=== PATIENT | female | born 1970 | race Two or more races ===

== ENCOUNTER 2019-07-18 12:46 | Inpatient (IN) | payer MEDICAID ==
[~2019-07-18] VITALS: Ht 157.5 cm; Wt 71.5 kg
[2019-07-18] MEDS ORDERED: POLYETHYLENE GLYCOL 17 GM PACKET PO PRN (13:00)
[2019-07-18] MEDS ORDERED: BISACODYL 10 MG SUPP PR PRN (13:00)
[2019-07-18 14:00] VITALS: BP 136/97
[2019-07-18] MEDS ORDERED: PLEASE ENTER ALLERGIES MC SCH (14:30)
[2019-07-18] MEDS ORDERED: PLEASE ENTER HEIGHT AND WEIGHT MC SCH (14:30)
[2019-07-18 15:20] VITALS: BP 136/97
[2019-07-18 15:27] LABS: CHOLESTEROL, TOTAL 120 mg/dL (140-239); TRIGLYCERIDES 136 mg/dL (50-200); VLDL CHOLESTEROL 27 mg/dL (0-25)
[2019-07-18 15:31] LABS: FREE T4 (FREE THYROXINE) 1.22 ng/dL (0.76-1.46); HDL CHOL % 33 % (28-40); HDL CHOLESTEROL (DIRECT) 40 mg/dL (40-60); LDL CHOLESTEROL,CALCULATED 53 mg/dL (54-169); LDL/HDL RATIO 1.3 (0.5-3.0)
[2019-07-18] MEDS ORDERED: ZIPR80CA2 PO (17:42)
[2019-07-18] MEDS ORDERED: LISI10TA2 PO (17:42)
[2019-07-18] MEDS ORDERED: DIVA500T4 PO (17:42)
[2019-07-18] MEDS ORDERED: HYDR50CA2 PO (17:42)
[2019-07-18] MEDS ORDERED: SITA50TA PO (17:42)
[2019-07-18] MEDS ORDERED: METF850T10 PO (17:42)
[2019-07-18] MEDS ORDERED: TRAZ50TA66 PO (17:42)
[2019-07-18] MEDS ORDERED: ESTR30CR VG (17:42)
[2019-07-18 19:15] VITALS: BP 123/85
[2019-07-19 07:04] LABS: BASOPHILS # (AUTO) 0.06 x10^3/uL (0-0.1); BASOPHILS % (AUTO) 1 % (0-1); EOSINOPHILS # (AUTO) 0.05 x10^3/uL (0-0.4); EOSINOPHILS % (AUTO) 0 % (1-7); LYMPHOCYTES % (AUTO) 16 % (22-44); MD NO; MEAN CORPUSCULAR HEMOGLOBIN 31.1 pg (27.0-34.8); MEAN CORPUSCULAR VOLUME 91.5 fL (80-100); MEAN PLATELET VOLUME 7.8 fL (7.4-10.4); MONOCYTES # (AUTO) 1.07 x10^3/uL (0.2-0.8); MONOCYTES % (AUTO) 9 % (2-9); NEUTROPHILS # (AUTO) 9.27 x10^3/uL (1.8-6.8); NEUTROPHILS % (AUTO) 74 % (42-75); PLATELET COUNT 231 x10^3/uL (130-400); RED BLOOD COUNT 5.01 x10^6/uL (3.82-5.3); RED CELL DISTRIBUTION WIDTH 12.9 % (9.6-15.2)
[2019-07-19 07:11] VITALS: BP 117/85
[2019-07-19 07:16] LABS: ANION GAP 7 mmol/L (5-15); CALCIUM 8.6 mg/dL (8.5-10.1); CHLORIDE 106 mmol/L (98-107); CREATININE 0.75 mg/dL (0.55-1.02)
[2019-07-19] MEDS: ACETAMINOPHEN 325 MG TABLET PO PRN (10:58)
[2019-07-19 13:49] LABS: MICROSCOPIC INDICATED
[2019-07-19 13:57] LABS: AMPHETAMINE SCREEN, URINE Positive (Negative); BARBITURATE SCREEN, URINE Negative (Negative); BENZODIAZEPINE SCREEN, URINE Negative (Negative); CANNABINOID SCREEN, URINE Negative (Negative); COCAINE SCREEN, URINE Negative (Negative); METHADONE SCREEN, URINE Negative (Negative); OPIATE SCREEN, URINE Negative (Negative)
[2019-07-19 14:19] LABS: CULTURE INDICATED? NO
[2019-07-19] MEDS: ZIPRASIDONE 40MG CAPSULE PO SCH ×2 (15:06→20:52)
[2019-07-19] MEDS: HYDROXYZINE PAMOATE 50MG CAP PO SCH ×2 (15:07→20:50)
[2019-07-19] MEDS: INSULIN LISPRO 100 UNITS/ML, PEN SQ-INSULIN SCH ×2 (18:00→20:56)
[2019-07-19 19:00] VITALS: BP 99/69
[2019-07-19] MEDS: metFORMIN 850 MG TABLET PO SCH (20:50)
[2019-07-20 07:42] VITALS: BP 114/80
[2019-07-20] MEDS: INSULIN LISPRO 100 UNITS/ML, PEN SQ-INSULIN SCH ×4 (08:15→20:25)
[2019-07-20] MEDS ORDERED: LINAGLIPTIN 5 MG TAB PO SCH (09:00)
[2019-07-20] MEDS: LINAGLIPTIN 5 MG TAB PO SCH (09:16)
[2019-07-20] MEDS: ZIPRASIDONE 40MG CAPSULE PO SCH ×2 (09:17→20:26)
[2019-07-20] MEDS: HYDROXYZINE PAMOATE 50MG CAP PO SCH ×2 (09:17→20:26)
[2019-07-20] MEDS: LISINOPRIL 10 MG TABLET PO SCH (09:17)
[2019-07-20] MEDS: metFORMIN 850 MG TABLET PO SCH ×3 (09:17→20:26)
[2019-07-20 19:25] VITALS: BP 105/63
[2019-07-20] MEDS: ONDANSETRON ODT 4 MG PO PRN (22:50)
[2019-07-21] MEDS ORDERED: TRAZODONE 100MG TABLET PO ONE (01:30)
[2019-07-21 07:24] VITALS: BP 127/89
[2019-07-21] MEDS: INSULIN LISPRO 100 UNITS/ML, PEN SQ-INSULIN SCH ×4 (08:03→19:40)
[2019-07-21] MEDS: LISINOPRIL 10 MG TABLET PO SCH (08:15)
[2019-07-21] MEDS: metFORMIN 850 MG TABLET PO SCH ×3 (08:15→19:39)
[2019-07-21] MEDS: HYDROXYZINE PAMOATE 50MG CAP PO SCH ×2 (08:15→19:39)
[2019-07-21] MEDS: ZIPRASIDONE 40MG CAPSULE PO SCH ×2 (08:15→19:39)
[2019-07-21] MEDS: LINAGLIPTIN 5 MG TAB PO SCH (08:15)
[2019-07-21 19:24] VITALS: BP 124/80
[2019-07-21] MEDS: ACETAMINOPHEN 325 MG TABLET PO PRN (19:39)
[2019-07-22 07:27] VITALS: BP 124/77
[2019-07-22] MEDS: INSULIN LISPRO 100 UNITS/ML, PEN SQ-INSULIN SCH ×4 (08:11→20:29)
[2019-07-22] MEDS: ZIPRASIDONE 40MG CAPSULE PO SCH ×2 (08:45→20:29)
[2019-07-22] MEDS: LINAGLIPTIN 5 MG TAB PO SCH (08:45)
[2019-07-22] MEDS: metFORMIN 850 MG TABLET PO SCH ×3 (08:46→20:30)
[2019-07-22] MEDS: HYDROXYZINE PAMOATE 50MG CAP PO SCH ×2 (08:46→20:30)
[2019-07-22] MEDS: LISINOPRIL 10 MG TABLET PO SCH (08:46)
[2019-07-22 19:00] VITALS: BP 112/79
[2019-07-22] MEDS: ONDANSETRON ODT 4 MG PO PRN (19:37)
[2019-07-22] MEDS: DOCUSATE 100 MG CAPSULE PO PRN (20:30)
[2019-07-22] MEDS: ACETAMINOPHEN 325 MG TABLET PO PRN (20:30)
[2019-07-23] MEDS: INSULIN LISPRO 100 UNITS/ML, PEN SQ-INSULIN SCH ×4 (07:00→20:02)
[2019-07-23 07:37] VITALS: BP 129/83
[2019-07-23] MEDS: ZIPRASIDONE 40MG CAPSULE PO SCH ×2 (09:03→20:02)
[2019-07-23] MEDS: LINAGLIPTIN 5 MG TAB PO SCH (09:04)
[2019-07-23] MEDS: metFORMIN 850 MG TABLET PO SCH ×3 (09:04→20:02)
[2019-07-23] MEDS: HYDROXYZINE PAMOATE 50MG CAP PO SCH ×2 (09:04→20:02)
[2019-07-23] MEDS: LISINOPRIL 10 MG TABLET PO SCH (09:04)
[2019-07-23] MEDS: DOCUSATE 100 MG CAPSULE PO PRN (09:05)
[2019-07-23 19:58] VITALS: BP 120/80
[2019-07-23] MEDS: ONDANSETRON ODT 4 MG PO PRN (21:45)
[2019-07-24 07:39] VITALS: BP 99/66
[2019-07-24] MEDS: INSULIN LISPRO 100 UNITS/ML, PEN SQ-INSULIN SCH ×4 (08:10→20:38)
[2019-07-24] MEDS: HYDROXYZINE PAMOATE 50MG CAP PO SCH ×2 (08:11→20:37)
[2019-07-24] MEDS: LINAGLIPTIN 5 MG TAB PO SCH (08:11)
[2019-07-24] MEDS: metFORMIN 850 MG TABLET PO SCH ×3 (08:11→20:37)
[2019-07-24] MEDS: ZIPRASIDONE 40MG CAPSULE PO SCH ×2 (08:12→20:37)
[2019-07-24] MEDS: LISINOPRIL 10 MG TABLET PO SCH (08:14)
[2019-07-24] MEDS: GUAIFENESIN 100 MG/5 ML, 5ML UDC PO PRN ×2 (12:40→21:00)
[2019-07-24 19:32] VITALS: BP 127/88
[2019-07-24] MEDS: ONDANSETRON ODT 4 MG PO PRN (21:39)
[2019-07-25] MEDS: INSULIN LISPRO 100 UNITS/ML, PEN SQ-INSULIN SCH ×4 (07:00→20:24)
[2019-07-25 07:41] VITALS: BP 112/80
[2019-07-25] MEDS: ZIPRASIDONE 40MG CAPSULE PO SCH ×2 (08:05→20:23)
[2019-07-25] MEDS: LINAGLIPTIN 5 MG TAB PO SCH (08:06)
[2019-07-25] MEDS: LISINOPRIL 10 MG TABLET PO SCH (08:06)
[2019-07-25] MEDS: metFORMIN 850 MG TABLET PO SCH ×3 (08:07→20:23)
[2019-07-25] MEDS: HYDROXYZINE PAMOATE 50MG CAP PO SCH ×2 (08:07→20:23)
[2019-07-25] MEDS: GUAIFENESIN 100 MG/5 ML, 5ML UDC PO PRN ×2 (16:34→21:05)
[2019-07-25 19:36] VITALS: BP 106/69
[2019-07-25] MEDS: ONDANSETRON ODT 4 MG PO PRN (22:56)
[2019-07-26 07:00] VITALS: BP 128/75
[2019-07-26] MEDS: INSULIN LISPRO 100 UNITS/ML, PEN SQ-INSULIN SCH ×4 (07:00→20:14)
[2019-07-26] MEDS: LINAGLIPTIN 5 MG TAB PO SCH (09:25)
[2019-07-26] MEDS: metFORMIN 850 MG TABLET PO SCH ×3 (09:25→20:38)
[2019-07-26] MEDS: LISINOPRIL 10 MG TABLET PO SCH (09:26)
[2019-07-26] MEDS: ZIPRASIDONE 40MG CAPSULE PO SCH ×2 (09:26→20:38)
[2019-07-26] MEDS: HYDROXYZINE PAMOATE 50MG CAP PO SCH ×2 (09:26→20:37)
[2019-07-26] MEDS ORDERED: METF850T PO (16:34)
[2019-07-26] MEDS ORDERED: LISI-167 PO (16:34)
[2019-07-26] MEDS ORDERED: ZIPR40CA2 PO (16:34)
[2019-07-26] MEDS ORDERED: HYDR50CA2 PO (16:34)
[2019-07-26] MEDS ORDERED: LINA5TAB PO (16:34)
[2019-07-26 19:58] VITALS: BP 106/73
[2019-07-26] MEDS: ONDANSETRON ODT 4 MG PO PRN (23:35)
[2019-07-27 07:29] VITALS: BP 108/76
[2019-07-27] MEDS: INSULIN LISPRO 100 UNITS/ML, PEN SQ-INSULIN SCH (08:03)
[2019-07-27] MEDS: HYDROXYZINE PAMOATE 50MG CAP PO SCH (08:52)
[2019-07-27] MEDS: LISINOPRIL 10 MG TABLET PO SCH (08:52)
[2019-07-27] MEDS: ZIPRASIDONE 40MG CAPSULE PO SCH (08:52)
[2019-07-27] MEDS: LINAGLIPTIN 5 MG TAB PO SCH (08:52)
[2019-07-27] MEDS: metFORMIN 850 MG TABLET PO SCH (08:52)
== END 2019-07-27 10:50 | disposition home or self-care (01) | DRG 750 ==
LOC: 3E 13:54
PROVIDERS: ADMIT Psychiatry & Neurology Psychosomatic Medicine; ATTEND Psychiatry & Neurology Psychosomatic Medicine
DX: F25.0 Schizoaffective disorder, bipolar type (principal); Z78.1 Physical restraint status; E11.9 Type 2 diabetes mellitus without complications; E78.5 Hyperlipidemia, unspecified; I10 Essential (primary) hypertension; K21.9 Gastro-esophageal reflux disease without esophagitis; F41.9 Anxiety disorder, unspecified; F23 Brief psychotic disorder; Z91.14 Patient's other noncompliance with medication regimen; F15.21 Other stimulant dependence, in remission; F10.20 Alcohol dependence, uncomplicated; Z79.84 Long term (current) use of oral hypoglycemic drugs
CPT/HCPCS: 36415; 80048; 80061; 80307; 81001; 82140; 82607; 82962; 83036; 84439; 84443; 84703; 85025; 93005; Q0162; J1815

== ENCOUNTER 2019-08-30 10:46 | Emergency (ER) | payer MEDICAID ==
[~2019-08-30] VITALS: Ht 157.5 cm; Wt 78.5 kg
[~2019-08-30 10:46] MED LIST: DIVA500T4 PO; ESTR30CR VG; HYDR50CA2 PO; LINA5TAB PO; LISI-167 PO; LISI10TA2 PO; METF850T PO; METF850T10 PO; SITA50TA PO; TRAZ50TA66 PO; ZIPR40CA2 PO; ZIPR80CA2 PO
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
--- NOTE | 2019-08-30 11:00 | NUR ---
CLOTHING, BOOTS, PURSE, HOUSE KEYS BAGGED. BAG TAGGED W/ PT NAME.
--- NOTE | 2019-08-30 11:23 | NUR ---
DR COPPOLA BS FOR EXAM W/ SCRIBE
--- NOTE | 2019-08-30 11:53 | NUR ---
PT LYING ON BED, HAVING CONVERSATION WITH HERSELF: SWEARING, YELLING. SIDE RAILS UP X2
--- NOTE | 2019-08-30 12:05 | NUR ---
VINCE, MANAGER DRIVE, IN ROOM W/ PT
--- NOTE | 2019-08-30 12:45 | NUR ---
PT LYING ON BED, SIDE RAILS UP, TALKING TO SELF (SWEARING, TALKING LOUDLY). AWAITING [facility] EVAL.
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
--- NOTE | 2019-08-30 14:06 | NUR ---
OFFICER FAUSTINO PICKETT, HERE TO SEE PT.
[2019-08-30 14:43] LABS: BASOPHILS # (AUTO) 0.03 x10^3/uL (0-0.1); BASOPHILS % (AUTO) 0 % (0-1); EOSINOPHILS # (AUTO) 0.11 x10^3/uL (0-0.4); EOSINOPHILS % (AUTO) 1 % (1-7); LYMPHOCYTES # (AUTO) 3.21 x10^3/uL (1-3.4); LYMPHOCYTES % (AUTO) 28 % (22-44); MD NO; MEAN CORPUSCULAR HEMOGLOBIN 30.3 pg (27.0-34.8); MEAN CORPUSCULAR HGB CONC 33.5 g/dL (32.4-35.8); MEAN CORPUSCULAR VOLUME 90.5 fL (80-100); MEAN PLATELET VOLUME 7.7 fL (7.4-10.4); MONOCYTES # (AUTO) 0.81 x10^3/uL (0.2-0.8); MONOCYTES % (AUTO) 7 % (2-9); NEUTROPHILS # (AUTO) 7.24 x10^3/uL (1.8-6.8); NEUTROPHILS % (AUTO) 64 % (42-75); PLATELET COUNT 232 x10^3/uL (130-400); RED BLOOD COUNT 4.56 x10^6/uL (3.82-5.3); RED CELL DISTRIBUTION WIDTH 13.1 % (9.6-15.2)
[2019-08-30 14:46] LABS: ALBUMIN 3.3 g/dL (3.4-5.0); ANION GAP 9 mmol/L (5-15); CALCIUM 8.4 mg/dL (8.5-10.1); CHLORIDE 104 mmol/L (98-107)
[2019-08-30 14:47] LABS: CREATININE 0.76 mg/dL (0.55-1.02)
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
--- NOTE | 2019-08-30 15:25 | NUR ---
THROUGHPUT: PSYCH WINDING OPERATOR (FLO) TO SEE CYNTHIA
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
--- NOTE | 2019-08-30 16:00 | NUR ---
LUNCH TRAY ORDERED.
--- NOTE | 2019-08-30 16:04 | NUR ---
PT ENDORSED TO BREAK RN. PT CARE TRANSFERRED.
[2019-08-30] MEDS ORDERED: PLEASE ENTER HEIGHT AND WEIGHT MC SCH (17:30)
[2019-08-30] MEDS ORDERED: HYDROXYZINE PAMOATE 50MG CAP PO PRN (17:30)
[2019-08-30 17:32] LABS: SALICYLATE LEVEL 2.2 mg/dL (2.8-20.0)
--- NOTE | 2019-08-30 17:45 | NUR ---
PT NOTIFIED OF NEED FOR URINE SPECIMEN. PT ASKING "ARE MY (STD) TESTS BACK YET?" INFORMED HER WE NEED URINE FOR TESTING. PT STATES, WITH A COOKIE IN HER MOUTH, "I HAVEN'T HAD ANYTHING TO EAT OR DRINK." EMPTY FOOD TRAY ON CHAIR NEXT TO PT; ASKED PT TO DRINK HER MILK.
--- NOTE | 2019-08-30 17:58 | NUR ---
PT AMBULATORY TO & FROM [facility], ACCOMPANIED BY THIS RN. VOIDED SPECIMEN PROVIDED; CLOUDY. WILL BE WALKED TO LAB.
--- NOTE | 2019-08-30 18:00 | NUR ---
ERP NOTIFIED OF CLOUDY URINE. UA TO BE ORDERED.
[2019-08-30 18:38] LABS: AMPHETAMINE SCREEN, URINE Positive (Negative); BARBITURATE SCREEN, URINE Negative (Negative); BENZODIAZEPINE SCREEN, URINE Negative (Negative); CANNABINOID SCREEN, URINE Negative (Negative); COCAINE SCREEN, URINE Negative (Negative); METHADONE SCREEN, URINE Negative (Negative); OPIATE SCREEN, URINE Negative (Negative)
--- NOTE | 2019-08-30 19:20 | NUR ---
RESTING QUIETLY ON BED. ADDITIONAL MEAL TRAY ON BS TABLE.
[2019-08-30] MEDS: ZIPRASIDONE 40MG CAPSULE PO SCH (21:07)
--- NOTE | 2019-08-30 21:08 | NUR ---
GEODON GIVEN PER EMAR
[2019-08-30 21:30] LABS: CULTURE INDICATED? YES; MICROSCOPIC INDICATED
--- NOTE | 2019-08-30 21:55 | NUR ---
PT REPORT TO ROULA SIMMS. PT CARE TRANSFERRED
--- NOTE | 2019-08-30 22:40 | NUR ---
received report from real kumar pt is shouting agitated yelling in the rm on the wall sitter at door
--- NOTE | 2019-08-31 00:03 | NUR ---
pt is sleeping vss stable sitter at door offered water or voiding pt refused at this time
--- NOTE | 2019-08-31 01:14 | NUR ---
RECEIVED REPORT FROM ROULA SIMMS TO ASSUME CARE OF PT. AT THIS TIME. PT. RESTING ON GURNEY WITH EYES CLOSED. EVEN, NON-LABORED RESPIRATIONS VISIBLE. CONTINUOUS PULSE OX AND B/P MONITORING IN USE. SITTER IN DIRECT VIEW.
--- NOTE | 2019-08-31 02:27 | NUR ---
PT MOVED TO ROOM 38 FOR CONTINUITY OF CARE. PT MOVED TO HOSPITAL BED FOR COMFORT. SITTER REMAINS IN PLACE.
--- NOTE | 2019-08-31 03:32 | NUR ---
PT SLEEPING. NAD. SITTER IN PLACE.
--- NOTE | 2019-08-31 04:56 | NUR ---
PT SLEEPING. EQUAL CHEST RIDE AND FALL. NAD. SITTER IN PLACE.
--- NOTE | 2019-08-31 06:55 | NUR ---
RECEIVED REPORT FROM NIEVES. PT SLEEPING ON HOSPITAL BED CALMLY, NAD WITH EQUAL CHEST RISE/FALL, NO NEEDS AT THIS TIME, PT REMAINS IN SAFE ENVIRONMENT, SITTER IN VIEW.
--- NOTE | 2019-08-31 08:14 | NUR ---
REPORT GIVEN TO GERARD
[2019-08-31 08:45] VITALS: BP 12/78
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
[2019-08-31] MEDS ORDERED: ZIPRASIDONE 20MG CAPSULE ONE (08:47)
[2019-08-31] MEDS: ZIPRASIDONE 40MG CAPSULE PO SCH (08:58)
--- NOTE | 2019-08-31 09:25 | NUR ---
LATE ENTRY FOR 0800, SBAR RPT REC'D FROM ROULA MELCHOR. PT SLEEPING, NAD NOTED, RESP EVEN NON-LABORED. VERRIFIED THAT ROOM IS SECURE WITH GARAGE DOORS DOWN AND SITTER AT DOORWAY WITH PT IN VIEW.
--- NOTE | 2019-08-31 11:03 | NUR ---
REPORT RECEIVED FROM GERARD CELESTE.
--- NOTE | 2019-08-31 12:48 | NUR ---
THROUGHPUT: ARVIND (KEREN) TO SEE PT PRIOR TO DC, PER SABI (PSYCH FULL STACK ENGINEER) REQUEST.
--- NOTE | 2019-08-31 12:53 | NUR ---
LATE ENTRY: PATIENT ESCORTED TO REST ROOM WHICH WAS OCCUPIED. RETURNED TO ROOM TO WAIT FOR OPEN RESTROOM. WHILE STANDING IN ROOM SHE URINATED ON THE FLOOR STATING THAT SHE COULD NO LONGER HOLD IT. PATIENT GIVEN SHOWER AND CLEAN GOWN. ROOM CLEANED. PATIENT IS SITTING IN ROOM IN NO ACUTE DISTRESS. WILL CONTINUE TO MONITOR.
--- NOTE | 2019-08-31 13:23 | NUR ---
PRODUCTION ASSEMBLY OPERATOR IN ROOM.
--- NOTE | 2019-08-31 14:04 | NUR ---
Patient given discharge instructions and they have confirmed that they understand the instructions. Patient ambulatory with steady gait.
== END 2019-08-31 14:13 | disposition home or self-care (01) ==
LOC: ED 16:54
DX: R44.3 Hallucinations, unspecified (principal); F06.2 Psychotic disorder with delusions due to known physiological condition; Z87.891 Personal history of nicotine dependence
CPT/HCPCS: 36415; 80048; 80307; 81001; 82040; 84703; 85025; 87086; 99283

== ENCOUNTER 2019-09-05 18:09 | Emergency (ER) | payer MEDICAID ==
[~2019-09-05] VITALS: Ht 160 cm; Wt 71.0 kg
--- NOTE | 2019-09-05 18:53 | NUR ---
REPORT GIVEN TO JUANITA
--- NOTE | 2019-09-05 19:06 | NUR ---
PT STATES SHE FEELS LIKE SHE IS GOING TO PASS OUT AND SHE THINKS SHE IS GOING TO BECAUSE SHE HAS NOT BEEN TAKING HER HYDROXAZINE. WHEN ASKED WHAT WE CAN DO FOR HER TODAY SHE STATES "I DONT KNOW, MAYBE YOU CAN HELP ME WITH MY MEDICATIONS-MY METFORMIN AND STUFF"
[2019-09-05 19:08] VITALS: BP 139/66
[2019-09-05] MEDS ORDERED: hydrOXyzine 50MG TABLET ONE (19:52)
--- NOTE | 2019-09-05 20:15 | NUR ---
medication request tubed to pharm
[2019-09-05] MEDS ORDERED: metFORMIN 500 MG TABLET PO ONE (20:30)
== END 2019-09-05 20:58 | disposition home or self-care (01) ==
LOC: ED 20:40
DX: E11.65 Type 2 diabetes mellitus with hyperglycemia (principal); Z72.9 Problem related to lifestyle, unspecified
CPT/HCPCS: 82962; 99283; Q0177

== ENCOUNTER 2019-10-30 14:40 | Inpatient (IN) | payer MEDICAID ==
[~2019-10-30] VITALS: Ht 157.5 cm; Wt 72.7 kg
[2019-10-30] MEDS ORDERED: ONDANSETRON ODT 4 MG PO PRN (15:30)
[2019-10-30] MEDS ORDERED: BISACODYL 10 MG SUPP PR PRN (15:30)
[2019-10-30] MEDS ORDERED: POLYETHYLENE GLYCOL 17 GM PACKET PO PRN (15:30)
[2019-10-30] MEDS ORDERED: DOCUSATE 100 MG CAPSULE PO PRN (15:30)
[2019-10-30 17:58] VITALS: BP 108/77
[2019-10-30 19:27] VITALS: BP_SYST 105; BP_SYST 115; BP_DIAS 76
[2019-10-30] MEDS: ZIPRASIDONE 40MG CAPSULE PO SCH (20:29)
[2019-10-30] MEDS: HYDROXYZINE PAMOATE 50MG CAP PO PRN (20:33)
[2019-10-30 22:26] LABS: FREE T4 (FREE THYROXINE) 1.06 ng/dL (0.76-1.46)
[2019-10-31] MEDS: HYDROXYZINE PAMOATE 50MG CAP PO PRN ×2 (00:14→20:24)
[2019-10-31 05:14] LABS: CHLORIDE 107 mmol/L (98-107)
[2019-10-31 05:18] LABS: ANION GAP 9 mmol/L (5-15); CALCIUM 8.6 mg/dL (8.5-10.1); CREATININE 0.64 mg/dL (0.55-1.02)
[2019-10-31 05:54] LABS: BASOPHILS # (AUTO) 0.06 x10^3/uL (0-0.1); BASOPHILS % (AUTO) 1 % (0-1); EOSINOPHILS # (AUTO) 0.36 x10^3/uL (0-0.4); EOSINOPHILS % (AUTO) 4 % (1-7); LYMPHOCYTES # (AUTO) 3.69 x10^3/uL (1-3.4); LYMPHOCYTES % (AUTO) 41 % (22-44); MD NO; MEAN CORPUSCULAR HEMOGLOBIN 29.7 pg (27.0-34.8); MEAN CORPUSCULAR HGB CONC 33.6 g/dL (32.4-35.8); MEAN CORPUSCULAR VOLUME 88.4 fL (80-100); MEAN PLATELET VOLUME 7.5 fL (7.4-10.4); MONOCYTES # (AUTO) 0.68 x10^3/uL (0.2-0.8); MONOCYTES % (AUTO) 8 % (2-9); NEUTROPHILS # (AUTO) 4.13 x10^3/uL (1.8-6.8); NEUTROPHILS % (AUTO) 46 % (42-75); PLATELET COUNT 186 x10^3/uL (130-400); RED BLOOD COUNT 5.16 x10^6/uL (3.82-5.3); RED CELL DISTRIBUTION WIDTH 12.2 % (9.6-15.2)
[2019-10-31 07:47] VITALS: BP 130/90
[2019-10-31] MEDS: ZIPRASIDONE 40MG CAPSULE PO SCH ×2 (09:21→20:24)
[2019-10-31] MEDS: metFORMIN 850 MG TABLET PO SCH ×3 (09:21→17:24)
[2019-10-31 19:47] VITALS: BP 108/75
[2019-11-01 07:07] VITALS: BP 136/85
[2019-11-01] MEDS: metFORMIN 850 MG TABLET PO SCH ×3 (08:33→17:36)
[2019-11-01] MEDS: ZIPRASIDONE 40MG CAPSULE PO SCH ×2 (08:33→20:39)
[2019-11-01 19:57] VITALS: BP 114/78
[2019-11-01] MEDS: HYDROXYZINE PAMOATE 50MG CAP PO PRN (20:39)
[2019-11-02 07:15] VITALS: BP 113/78
[2019-11-02] MEDS: metFORMIN 850 MG TABLET PO SCH ×3 (07:54→16:30)
[2019-11-02] MEDS: ZIPRASIDONE 40MG CAPSULE PO SCH ×2 (07:54→20:27)
[2019-11-02] MEDS: HYDROXYZINE PAMOATE 50MG CAP PO PRN (12:56)
[2019-11-02 19:41] VITALS: BP 117/80
[2019-11-02] MEDS: ACETAMINOPHEN 325 MG TABLET PO PRN (20:27)
[2019-11-02] MEDS: CARBAMAZEPINE 200 MG TABLET PO SCH (20:27)
[2019-11-03 07:31] VITALS: BP 124/75
[2019-11-03] MEDS: CARBAMAZEPINE 200 MG TABLET PO SCH ×2 (08:48→20:16)
[2019-11-03] MEDS: metFORMIN 850 MG TABLET PO SCH ×3 (08:48→16:33)
[2019-11-03] MEDS: ZIPRASIDONE 40MG CAPSULE PO SCH ×2 (08:48→20:16)
[2019-11-03 13:02] LABS: MICROSCOPIC INDICATED
[2019-11-03 13:03] LABS: CULTURE INDICATED? YES
[2019-11-03 19:48] VITALS: BP 108/75
[2019-11-03] MEDS: ACETAMINOPHEN 325 MG TABLET PO PRN (20:16)
[2019-11-04 07:39] VITALS: BP 110/74
[2019-11-04] MEDS: CARBAMAZEPINE 200 MG TABLET PO SCH ×2 (08:29→19:59)
[2019-11-04] MEDS: ZIPRASIDONE 40MG CAPSULE PO SCH ×2 (08:29→19:59)
[2019-11-04] MEDS: metFORMIN 850 MG TABLET PO SCH ×3 (08:29→17:10)
[2019-11-04] MEDS: GlyBURIDE 5 MG TABLET PO SCH ×2 (08:33→17:10)
[2019-11-04 19:01] VITALS: BP 114/78
[2019-11-04] MEDS: ACETAMINOPHEN 325 MG TABLET PO PRN (20:05)
[2019-11-04] MEDS: HYDROXYZINE PAMOATE 50MG CAP PO PRN (20:05)
[2019-11-05 07:36] VITALS: BP 115/75
[2019-11-05] MEDS: ZIPRASIDONE 40MG CAPSULE PO SCH ×2 (10:00→20:24)
[2019-11-05] MEDS: CARBAMAZEPINE 200 MG TABLET PO SCH ×2 (10:01→20:24)
[2019-11-05] MEDS: GlyBURIDE 5 MG TABLET PO SCH ×2 (10:01→17:06)
[2019-11-05] MEDS: metFORMIN 850 MG TABLET PO SCH ×3 (10:01→17:06)
[2019-11-05] MEDS: HYDROXYZINE PAMOATE 50MG CAP PO PRN ×2 (15:52→20:28)
[2019-11-05 19:41] VITALS: BP 126/86
[2019-11-05] MEDS: ACETAMINOPHEN 325 MG TABLET PO PRN (20:28)
[2019-11-06 07:29] VITALS: BP 142/94
[2019-11-06] MEDS: CARBAMAZEPINE 200 MG TABLET PO SCH ×2 (08:49→20:40)
[2019-11-06] MEDS: metFORMIN 850 MG TABLET PO SCH ×3 (08:49→16:02)
[2019-11-06] MEDS: GlyBURIDE 5 MG TABLET PO SCH ×2 (08:49→16:02)
[2019-11-06] MEDS: ZIPRASIDONE 40MG CAPSULE PO SCH ×2 (08:49→20:40)
[2019-11-06] MEDS: HYDROXYZINE PAMOATE 50MG CAP PO PRN ×2 (16:02→20:40)
[2019-11-06 19:00] VITALS: BP 113/79
[2019-11-06] MEDS: ACETAMINOPHEN 325 MG TABLET PO PRN (20:40)
[2019-11-07 07:22] VITALS: BP 118/79
[2019-11-07] MEDS: GlyBURIDE 5 MG TABLET PO SCH ×2 (08:29→17:55)
[2019-11-07] MEDS: ZIPRASIDONE 40MG CAPSULE PO SCH ×2 (08:29→20:46)
[2019-11-07] MEDS: CARBAMAZEPINE 200 MG TABLET PO SCH ×2 (08:29→20:45)
[2019-11-07] MEDS: metFORMIN 850 MG TABLET PO SCH ×3 (08:54→17:54)
[2019-11-07] MEDS: HYDROXYZINE PAMOATE 50MG CAP PO PRN ×2 (11:17→20:45)
[2019-11-07 19:49] VITALS: BP 107/72
[2019-11-07] MEDS: ACETAMINOPHEN 325 MG TABLET PO PRN (20:49)
[2019-11-08 07:46] VITALS: BP 104/65
[2019-11-08] MEDS: ZIPRASIDONE 40MG CAPSULE PO SCH ×2 (08:15→20:51)
[2019-11-08] MEDS: GlyBURIDE 5 MG TABLET PO SCH ×2 (08:15→17:08)
[2019-11-08] MEDS: metFORMIN 850 MG TABLET PO SCH ×3 (08:15→17:08)
[2019-11-08] MEDS: CARBAMAZEPINE 200 MG TABLET PO SCH ×2 (08:15→20:51)
[2019-11-08 19:42] VITALS: BP 110/76
[2019-11-08] MEDS: HYDROXYZINE PAMOATE 50MG CAP PO PRN (20:51)
[2019-11-08] MEDS: ACETAMINOPHEN 325 MG TABLET PO PRN (20:51)
[2019-11-09 07:29] VITALS: BP 117/79
[2019-11-09] MEDS: ZIPRASIDONE 40MG CAPSULE PO SCH (07:56)
[2019-11-09] MEDS: CARBAMAZEPINE 200 MG TABLET PO SCH (07:56)
[2019-11-09] MEDS: metFORMIN 850 MG TABLET PO SCH (07:56)
[2019-11-09] MEDS: GlyBURIDE 5 MG TABLET PO SCH (07:56)
[2019-11-09] MEDS ORDERED: ZIPR40CA2 PO (09:30)
[2019-11-09] MEDS ORDERED: CARB200T4 PO (09:30)
[2019-11-09] MEDS ORDERED: HYDR50CA2 PO (09:30)
[2019-11-09] MEDS ORDERED: GLYB5TAB3 PO (09:30)
[2019-11-09] MEDS ORDERED: METF850T PO (09:30)
== END 2019-11-09 10:10 | disposition home or self-care (01) | DRG 750 ==
LOC: 3E 17:50
PROVIDERS: ADMIT Psychiatry & Neurology Psychosomatic Medicine; ATTEND Psychiatry & Neurology Psychosomatic Medicine
DX: F25.0 Schizoaffective disorder, bipolar type (principal); R45.851 Suicidal ideations; F15.20 Other stimulant dependence, uncomplicated; E11.9 Type 2 diabetes mellitus without complications; E78.5 Hyperlipidemia, unspecified; F17.210 Nicotine dependence, cigarettes, uncomplicated; I10 Essential (primary) hypertension; K21.9 Gastro-esophageal reflux disease without esophagitis; Z79.84 Long term (current) use of oral hypoglycemic drugs; Z79.899 Other long term (current) drug therapy; Z83.3 Family history of diabetes mellitus; Z82.49 Family history of ischemic heart disease and other diseases of the circulatory system
CPT/HCPCS: 36415; 71045; 80048; 80061; 81001; 82607; 82962; 83036; 84439; 84443; 85025; 87086; 93005

== ENCOUNTER 2020-08-28 16:49 | Emergency (ER) | payer SELFPAY ==
[~2020-08-28 16:49] MED LIST changes: +CARB200T4 PO; +GLYB5TAB3 PO
--- NOTE | 2020-08-28 17:40 | NUR ---
[employer] at bedside.
[2020-08-28 17:46] LABS: BASOPHILS % (AUTO) 0 % (0-1); EOSINOPHILS % (AUTO) 3 % (1-7); LYMPHOCYTES % (AUTO) 40 % (22-44); MEAN CORPUSCULAR HEMOGLOBIN 30.1 pg (27.0-34.8); MEAN CORPUSCULAR HGB CONC 34.5 g/dL (32.4-35.8); MEAN PLATELET VOLUME 7.9 fL (7.4-10.4); MONOCYTES % (AUTO) 7 % (2-9); NEUTROPHILS % (AUTO) 51 % (42-75); PLATELET COUNT 241 x10^3/uL (130-400); RED BLOOD COUNT 5.47 x10^6/uL (3.82-5.3); RED CELL DISTRIBUTION WIDTH 12.9 % (9.6-15.2)
[2020-08-28 17:53] LABS: MICROSCOPIC NOT IND
[2020-08-28 17:58] LABS: MD NO
[2020-08-28 18:03] LABS: ALANINE AMINOTRANSFERASE 25 U/L (12-78); ALBUMIN 3.9 g/dL (3.4-5.0); ANION GAP 6 mmol/L (5-15); CALCIUM 9.4 mg/dL (8.5-10.1); CHLORIDE 106 mmol/L (98-107); SALICYLATE LEVEL 2.5 mg/dL (2.8-20.0)
[2020-08-28 18:06] LABS: ALKALINE PHOSPHATASE 206 U/L (45-117); BILIRUBIN,TOTAL 0.4 mg/dL (0.2-1.0); CREATININE 0.76 mg/dL (0.55-1.02); TOTAL PROTEIN 7.3 g/dL (6.4-8.2)
[2020-08-28 18:07] LABS: AMPHETAMINE SCREEN, URINE Positive (Negative); BARBITURATE SCREEN, URINE Negative (Negative); BENZODIAZEPINE SCREEN, URINE Negative (Negative); CANNABINOID SCREEN, URINE Negative (Negative); COCAINE SCREEN, URINE Negative (Negative); METHADONE SCREEN, URINE Negative (Negative); OPIATE SCREEN, URINE Negative (Negative)
--- NOTE | 2020-08-28 18:26 | NUR ---
Social work at bedside upon pt arrival. Pt states she is not comliant with psych meds. Denies SI/HI. Has non descript complaints about a bump on her vagina.
--- NOTE | 2020-08-28 19:13 | NUR ---
Report from ROULA Smiley. Assumed care.
--- NOTE | 2020-08-28 19:13 | NUR ---
Pt requesting to leave. Pt not placed on legal by MD, or social work. Pt given belongings. Bedide report to ROULA Dominguez. Pt to be d/c'd.
--- NOTE | 2020-08-28 19:14 | NUR ---
Pt.'s belongings returned to pt.
[2020-08-28 19:22] VITALS: BP 119/85
--- NOTE | 2020-08-28 19:42 | NUR ---
Provided cab voucher for pt. Pt. discharged.
== END 2020-08-28 19:44 | disposition home or self-care (01) ==
LOC: ED 19:31
DX: F15.10 Other stimulant abuse, uncomplicated (principal); T74.21XA Adult sexual abuse, confirmed, initial encounter; R41.82 Altered mental status, unspecified
CPT/HCPCS: 36415; 80053; 80299; 80307; 80320; 80329; 81003; 85025; 99283; G0480